=== PATIENT | female | born 1940 | race Caucasian/White ===

== ENCOUNTER 2018-08-14 11:48 | Emergency (ER) | payer MEDICARE, BC ==
[~2018-08-14] VITALS: Ht 165.1 cm; Wt 63.5 kg
[~2018-08-14 11:48] MED LIST: ESTR1PAT27; SIMV20TA2
--- NOTE | 2018-08-14 13:15 | NUR ---
1230: A/O x4, with c/o left leg pain 1310: Doppler left leg ordered, tech at bedside.
--- NOTE | 2018-08-14 13:15 | NUR ---
PT WALKED INTO EMERGENCY ROOM WITH C/C PERSISTENT LLE PAIN AND SWELLING SINCE THUSDAY CONCERN ABOUT DVT WAITNG MD EVALUATION PLACED IN HOSPITAL GOWN.
[2018-08-14 13:59] VITALS: BP 141/73
== END 2018-08-14 13:59 | disposition home or self-care (01) ==
LOC: ER 11:48
DX: R60.0 Localized edema (principal); Z98.890 Other specified postprocedural states; Z90.710 Acquired absence of both cervix and uterus
CPT/HCPCS: 93971-TC

== ENCOUNTER 2021-08-05 14:09 | Inpatient (IN) | payer MEDICARE, BC ==
[~2021-08-05] VITALS: Ht 165.1 cm; Wt 63.5 kg
[~2021-08-05 14:09] MED LIST changes: -SIMV20TA2; +SIMV20TA2 PO
--- NOTE | 2021-08-05 14:12 | NUR ---
MARILYN C/O VERTIGO SINCE YESTERDAY. CAME TO DR AGUIRRE AND WAS SENT HERE FOR A BRAIN SCAN. AWAITING MD KINGSTON.
--- NOTE | 2021-08-05 14:13 | NUR ---
sent by Dr. Dorado for w/u of severe vertigo
[2021-08-05] MEDS ORDERED: MECLIZINE HCL 25 MG TABLET ONE (14:57)
[2021-08-05] MEDS ORDERED: IV NS 0.9% 1,000 ML BAG IV ONE (15:00)
[2021-08-05] MEDS ORDERED: MECLIZINE HCL 12.5 MG TABLET PO ONE (15:00)
[2021-08-05 15:19] LABS: BASOPHILS % (AUTO) 0.3 % (0.0-2.0); EOSINOPHILS % (AUTO) 0.2 % (0.0-6.0); HEMATOCRIT 40 % (33-45); HEMOGLOBIN 13.8 g/dL (11.5-14.8); LYMPHOCYTES # (AUTO) 0.7 K/uL (0.8-4.8); MEAN CORPUSCULAR HGB CONC 34 g/dl (31.0-36.0); MEAN CORPUSCULAR VOLUME 90 fL (82-100); MONOCYTES # (AUTO) 0.8 K/uL (0.1-1.30); MONOCYTES % (AUTO) 9.6 % (2.0-12.0); NEUTROPHILS # (AUTO) 6.8 K/uL (1.8-8.9); NEUTROPHILS % (AUTO) 81.9 % (43.0-81.0); PLATELET COUNT (AUTO) 196 K/uL (150-450); RED BLOOD CELL COUNT(AUTO) 4.48 MIL/uL (4.0-5.2); WHITE BLOOD COUNT (AUTO) 8.3 K/uL (4.3-11.0)
--- NOTE | 2021-08-05 15:23 | NUR ---
PT TAKEN TO CT VIA [facility]
[2021-08-05] MEDS ORDERED: ESTR0.5T PO (15:29)
[2021-08-05] MEDS ORDERED: ESCI10TA PO (15:29)
[2021-08-05] MEDS ORDERED: ALPR0.255 PO (15:29)
--- NOTE | 2021-08-05 15:30 | NUR ---
PT [place]URN[place] [facility] [facility]
[2021-08-05 15:50] LABS: ALANINE AMINOTRANSFERASE 110 U/L (12-78); ALBUMIN 3.3 g/dL (3.4-5.0); ALKALINE PHOSPHATASE 98 U/L (46-116); ASPARTATE AMINOTRANSFERASE 85 U/L (15-37); BILIRUBIN,DIRECT 1.4 mg/dL (0.0-0.2); BILIRUBIN,TOTAL 4.2 mg/dL (0.2-1.0); CALCIUM, SERUM 9.1 mg/dL (8.5-10.1); CARBON DIOXIDE 30 mmol/L (21-32); CHLORIDE 103 mmol/L (98-107); CREATININE 0.7 mg/dL (0.6-1.3); GLUCOSE 111 mg/dL (74-106); POTASSIUM 3.7 mmol/L (3.5-5.1); SODIUM SERUM 141 mmol/L (136-145); TOTAL PROTEIN, SERUM 6.5 g/dL (6.4-8.2); UREA NITROGEN, BLOOD 15 mg/dL (7-18)
--- NOTE | 2021-08-05 16:37 | NUR ---
PAGED - JANIE - [employer] VIA EXCHANGE
[2021-08-05] MEDS ORDERED: ASPIRIN 81 MG TAB.CHEW PO ONE (17:30)
--- NOTE | 2021-08-05 17:51 | NUR ---
ROOM 106
[2021-08-05] MEDS ORDERED: ASPIRIN 81 MG TAB.CHEW ONE (17:54)
--- NOTE | 2021-08-05 18:31 | NUR ---
REPORT GIVEN TO SOON FOR TAYLOR
--- NOTE | 2021-08-05 19:29 | NUR ---
PT TRANSFERRED TO TELE FLOOR IN STABLE CONDITION WITH CLS PROTOCOLS IN PLACE
--- NOTE | 2021-08-05 19:30 | NUR ---
LUMBER HACKER NOTES: REPORT RECEIVED FROM CONRADO JOHNSTON. PT TRANSFERRED FROM ER VIA STRETCHER, PLACED IN ROOM 106 BED 1. PT AWAKE, ALERT/ORIENTED X3-4 AND VERBALLY RESPONSIVE. ON ROOM AIR, O2 95% AND PT TOLERATED WELL. ASSESSED THE WHOLE BODY. NOTED SKIN INTACT, NO OPEN SKIN OR SKIN DISCOLORATIONS NOTED. IV ACCESS ON RAC#20G INTACT AND PATENT. NO S/S OF INFILTRATIONS. PT REMAINED NPO AT THIS MOMENT PER DR. LIMA'S ORDER. APPLIED TELE MONITOR. CHANGED TO HOSPITAL GOWN. NO C/O PAIN OR DISCOMFORT. NO ACUTE DISTRESS. ASSISTED HER BATHROOM. NO C/O DIZZINESS AT THIS MOMENT. ALL SAFETY MEASURES IN PLACE. SIDE RAILS UPX2, BED IN LOWEST POSITION AND LOCKED. PLACE CALL LIGHT WITH IN REACH. WILL CONTINUE TO MONITOR
[2021-08-05 20:00] VITALS: BP 129/67
--- NOTE | 2021-08-05 23:35 | NUR ---
RN NOTES: PT CONSTANTLY ASKING FOR SOMETHING TO EAT? MENTIONED SHE HADN'T EAT ANYTHING SINCE LAST THURSDAY. TRIED TO EXPLAINED TO HER SHE IS NPO BUT DIDN'T WANT TO LISTEN. NOTIFIED DR. HILARIO, PT IS AMBULATORY, ABLE TO MAKE HER NEEDS. ORDER TO DO BED SIDE SWALLOW EVAL AND IF PASSES THEN MAKE AN ORDER FOR CARDIAC DIET. NOTED AND CARRIED OUT.
--- NOTE | 2021-08-05 23:45 | NUR ---
RN NOTES: GAVE PT FEW SPOONS OF WATER AND WAS ABLE TO SWALLOW WITHOUT ANY DIFFICULTIES. NO EPISODE OF ANY COUGHING NOTED. CARDIAC DIET ORDER MADE. WILL CONTINUE TO MONITOR
[2021-08-06] VITALS: BP 118/42
[2021-08-06 04:00] VITALS: BP 114/57
[2021-08-06 06:30] LABS: BASOPHILS % (AUTO) 0.2 % (0.0-2.0); EOSINOPHILS % (AUTO) 3.5 % (0.0-6.0); HEMATOCRIT 38 % (33-45); HEMOGLOBIN 12.8 g/dL (11.5-14.8); LYMPHOCYTES # (AUTO) 0.9 K/uL (0.8-4.8); LYMPHOCYTES % (AUTO) 16.4 % (20.0-44.0); MEAN CORPUSCULAR HGB CONC 34 g/dl (31.0-36.0); MEAN CORPUSCULAR VOLUME 90 fL (82-100); MONOCYTES # (AUTO) 0.7 K/uL (0.1-1.30); MONOCYTES % (AUTO) 11.9 % (2.0-12.0); NEUTROPHILS # (AUTO) 3.9 K/uL (1.8-8.9); PLATELET COUNT (AUTO) 173 K/uL (150-450); RED BLOOD CELL COUNT(AUTO) 4.18 MIL/uL (4.0-5.2); WHITE BLOOD COUNT (AUTO) 5.8 K/uL (4.3-11.0)
--- NOTE | 2021-08-06 06:39 | NUR ---
RN CLOSING NOTES: PT ASLEEP IN BED BUT EASILY AROUSABLE, AWAKE, ALERT/ORIENTED X3-4 AND VERBALLY RESPONSIVE. ON ROOM AIR, O2 97% AND PT TOLERATED WELL. IV ACCESS ON RAC#20G INTACT AND PATENT. NO S/S OF INFILTRATIONS. NO C/O PAIN OR DISCOMFORT. NO ACUTE DISTRESS. COOPERATIVE WITH CARE. ALL SAFETY MEASURES IN PLACE. SIDE RAILS UPX2, BED IN LOWEST POSITION AND LOCKED. PLACE CALL LIGHT WITH IN REACH. WILL ENDORSE TO MORNING SHIFT NURSE.
--- NOTE | 2021-08-06 06:49 | NUR ---
TEXT DR. UP FOR MRI APPROVAL.
[2021-08-06 06:57] LABS: BILIRUBIN,DIRECT 1.5 mg/dL (0.0-0.2); BILIRUBIN,TOTAL 4.3 mg/dL (0.2-1.0); CREATININE 0.6 mg/dL (0.6-1.3); POTASSIUM 3.6 mmol/L (3.5-5.1); TOTAL PROTEIN, SERUM 6.1 g/dL (6.4-8.2)
[2021-08-06 07:12] LABS: THYROID STIMULATING HORMONE 1.778 uIU/mL (0.358-3.74)
--- NOTE | 2021-08-06 07:30 | NUR ---
BEAD STRINGER AM NOTES PT IN BED, AO X 3-4 , ON RA O2 SAT 100%. DENIES SOB, RESPIRATION UNLABORED, SB HR 57. DENIES CHEST PAIN/ DISCOMFORT AT THIS TIME. IV ACCESS ON RAC#20G FLUSHES WELL, SITE CLEAR. COULD AMBULATE TO BATHROOM WITH ASSIST. ON CARDIAC DIET. NO C/O DIZZINESS AT THIS MOMENT. NIHSS SCALE DONE. SCORE 0. POC DISCUSSED, VERBALIZED UNDERSTANDING. ALL SAFETY MEASURES IN PLACE. SIDE RAILS UPX2, BED IN LOWEST POSITION AND LOCKED. CALL LIGHT WITH IN REACH. WILL CONTINUE TO MONITOR
[2021-08-06 08:00] VITALS: BP 117/65
--- NOTE | 2021-08-06 08:01 | NUR ---
MRI NOT APPROVED BY DR. UP.
[2021-08-06] MEDS: ESCITALOPRAM OXALATE (10 MG) 10 MG TABLET PO SCH (08:42)
--- NOTE | 2021-08-06 09:30 | NUR ---
RN NOTES DUE MEDS GIVEN PATIENT SEEN BY DR. CASTAÑEDA EARLIER AND AGREED TO WAIT FOR MRI OF BRAIN TO BE DONE.
--- NOTE | 2021-08-06 10:30 | NUR ---
RN NOTES DR. LUDWIG AT BEDSIDE. ORDERED HIDA SCAN
[2021-08-06 12:00] VITALS: BP 117/61
[2021-08-06] MEDS: ONDANSETRON HCL/PF 4 MG/2 ML VIAL IV PRN (12:38)
[2021-08-06] MEDS ORDERED: KETOROLAC TROMETHAMINE INJ 30 MG/ML VIAL IM ONE (14:00)
[2021-08-06 16:00] VITALS: BP 152/52
[2021-08-06] MEDS: SIMVASTATIN 20 MG TABLET PO SCH (17:41)
--- NOTE | 2021-08-06 18:04 | NUR ---
RN NOTES DR CASTAÑEDA AND DR. SCANLON NOTIFIED THAT MRI OF THE BRAIN WWO CONTRAST. PER DESI VU. DR. SCANLON WILL TALK TO THE PATIENT TOMORROW..
[2021-08-06] MEDS ORDERED: LORAZEPAM INJ 2 MG/ML VIAL IV ONE ×2 (18:30→21:00)
--- NOTE | 2021-08-06 18:37 | NUR ---
RN NOTES PATIENT BACK FROM HIDA SCAN. PER ILDA MUHAMMAD, HE WILL COME BACK TO CLIENT MANAGER LARGE LAW PATIENT AT 1930. KEEP PATIENT NPO, MAY HAVE SIPS OF WATER AND ICE CHIPS NO MORPHINE SULFATE.
--- NOTE | 2021-08-06 19:07 | NUR ---
RN NOTES ALL NEEDS MET AT THIS TIME. STABLE. NOT IN ANY DISTRESS. DR. SCANLON TO TALK TO PATIENT TOMORROW. WILL ENDORSE TO NEXT SHIFT FOR TAYLOR. Addendum: 08/06/21 at 1918 by EDGARDO SHERWOOD RN ADDENDUM MAY GIVE ATIVAN AND MORPHINE SULFATE AFTER HIDA SCAN.
--- NOTE | 2021-08-06 19:39 | NUR ---
RN NOTE PT WENT TO RADIOLOGY FOR HIDA SCAN.
[2021-08-06 20:20] VITALS: BP 148/89
--- NOTE | 2021-08-06 20:20 | NUR ---
RN NOTE PT CAME BACK FROM RADIOLOGY. ALERT AND ORIENTED. DENIES ANY SOB, ON ROOM AIR SATING 99%. DENIES ANY DIZZINESS. COMPLAINED OF PAIN ON RIGHT ABDOMEN WHICH PT STATED IMPROVED FROM EARLIER. ON TELE MONITORING, SR HR 66. WILL CONTINUE TO MONITOR.
--- NOTE | 2021-08-06 20:25 | NUR ---
NM:JAREDA SCAN WAS COMPLETED:TECH:RB
--- NOTE | 2021-08-06 21:21 | NUR ---
RN NOTE SEEN PT CRYING, REMEMBERING , REQUESTED FOR MED TO RELAX, PT WITH DUE LORAZEPAM IV. IV LINE ON RAC LEAKING, INSERTED 22G RFA FLUSHES WELL. GIVEN LORAZEPAM ORDERED. WILL CONTINUE TO MONITOR
[2021-08-07] VITALS: BP 127/48
--- NOTE | 2021-08-07 00:15 | NUR ---
rn note pt sleeping, arouses easily. denies any pain. will continue to monitor.
[2021-08-07 04:00] VITALS: BP 114/51
[2021-08-07 06:27] LABS: BASOPHILS % (AUTO) 0.1 % (0.0-2.0); EOSINOPHILS % (AUTO) 1.6 % (0.0-6.0); HEMATOCRIT 38 % (33-45); HEMOGLOBIN 12.7 g/dL (11.5-14.8); LYMPHOCYTES # (AUTO) 0.7 K/uL (0.8-4.8); LYMPHOCYTES % (AUTO) 8.4 % (20.0-44.0); MEAN CORPUSCULAR HGB CONC 34 g/dl (31.0-36.0); MEAN CORPUSCULAR VOLUME 90 fL (82-100); MONOCYTES # (AUTO) 1.2 K/uL (0.1-1.30); MONOCYTES % (AUTO) 13.5 % (2.0-12.0); NEUTROPHILS # (AUTO) 6.7 K/uL (1.8-8.9); NEUTROPHILS % (AUTO) 76.4 % (43.0-81.0); PLATELET COUNT (AUTO) 188 K/uL (150-450); RED BLOOD CELL COUNT(AUTO) 4.16 MIL/uL (4.0-5.2); WHITE BLOOD COUNT (AUTO) 8.8 K/uL (4.3-11.0)
--- NOTE | 2021-08-07 07:03 | NUR ---
RN NOTE PT SLEPT WELL ALL NIGHT. NOT IN ANY DISTRESS. TOLERATES ROOM AIR. PT DENIES ANY PAIN. SR ON TELE MONITOR. WILL ENDORSE TO NEXT SHIFT NURSE FOR TAYLOR.
[2021-08-07 07:07] LABS: ALBUMIN 2.8 g/dL (3.4-5.0); BILIRUBIN,DIRECT 3.3 mg/dL (0.0-0.2); BILIRUBIN,TOTAL 6.1 mg/dL (0.2-1.0); CREATININE 0.7 mg/dL (0.6-1.3); POTASSIUM 3.5 mmol/L (3.5-5.1)
--- NOTE | 2021-08-07 07:20 | NUR ---
RN OPENING NOTES RECEIVED PATIENT RESTING IN BED, EASILY AROUSED. NO SIGNS OF ACUTE DISTRESS NOTED. STABLE ON ROOM AIR, NO SOB NOTED, BREATHING EVEN AND UNLABORED. NOTED WITH IV ACCESS ON RIGHT FOREARM #22G, INTACT AND PATENT. NO C/O PAIN AT THIS TIME BUT STILL C/O DIZZINESS. REMAINS ON TELE MONITOR. SAFETY MEASURE IN PLACE, BED IN LOWEST AND LOCKED POSITION, SIDE RAILS UP X2, CALL LIGHT PLACED WITHIN EASY REACH. WILL CONTINUE TO MONITOR PATIENT.
[2021-08-07 08:00] VITALS: BP 129/70
[2021-08-07] MEDS: ESCITALOPRAM OXALATE (10 MG) 10 MG TABLET PO SCH (08:21)
--- NOTE | 2021-08-07 09:50 | NUR ---
RN NOTES PATIENT PICKED-UP FOR MRI OF BRAIN, IN STABLE CONDITION.
--- NOTE | 2021-08-07 10:40 | NUR ---
RN NOTES BACK FROM MRI.
--- NOTE | 2021-08-07 11:58 | NUR ---
SS Note: SS received consult for dizziness. Pt. Is an 81-year-old White female who demonstrates adequate insight to the reason for hospitalization. Per pt., she presents to the hospital for vertigo. Pt. was oriented x4, alert, and cooperative. During interview, pt. was capable of following directions and appeared groomed. Pt.s speech was at a normal rate and pt.s mood was elevated. Pt. reported no hx of mental health, substance abuse, suicidal ideation, or homicidal ideation. Pt. denies auditory hallucinations, visual hallucinations, paranoia, or delusions. SW explored pt.s living situation. Per pt., she now lives [id number] [address]]. Pt.s 3 months ago, and she has been going through a hard time, SW provided pt. with emotional support. Pt. reports having adequate support from her family. Her son has been checking on her two dogs at home. Pt.s son and daughter visit her once a week. Pt. stated that she was not able to eat for couple of days because she was not feeling well. Per EMR, pt. PCP was concern about vertigo symptoms. Plan: SW provided available resources and pt. accepted. Pt. expressed that she wants to return home once discharged [id number] [place] [address] Pt. stated that she feels safe going home and has family support. Resources Provided: ABUSE PREVENTION: ELDER ABUSE HOTLINE (13/10) ADULT PROTECTIVE SERVICES HOTLINE LONG-TERM CARE [facility] Region AREA ON AGING (HOTLINE) ADULT DAY HEALTH CARE CARE CENTERS: Private pay or Medi-chanelle funded adult day care [place] Adult Day Health Care [facility] , [facility] , [facility] Adult Care Center , [facility] Adult Day Health Care , [facility] Adult Day Health Care , [facility] Adult Daycare Center , [place] ONE Generation Center , [facility] Adult Center , [place] ALZHEIMERS DISEASE/DEMENTIA: Alzheimers Association Helpline [facility] Chapter www.alz.org/[facility] Department of Aging www.lacity.org Family Caregiver [place] www.caregiver.org [place] Caregiver Resources Center/Family Support www.[facility].org CANCER RESOURCES: [place] Cancer Society www.cancer.org Cancer Support Community www.CancerSupportVvsb.org: CancerCare www.cancercare.org [facility] Cancer Support [place] www.[facility].org [facility] HEALTH ASSOCIATIONS: AARP www.aarp.org ALS Association (ask for Tracy) www.als.org [place] Diabetes Association www.diabetes.org [place] Heart Association www.heart.org C[place] Lung Association www.lungusa.org Cymro Parkinson Disease Association www.apdaparkinson.org Cymro [place] , www.redcross.org Arthritis Foundation www.arthritis.org Crohns & Colitis Foundation of [place] www.ccfa.org/chapters/dominik National Multiple Sclerosis Society www.nationalmssociety.org Myasthenia Gravis Foundation www.myasthenia-ca.org National Stroke Association www.stroke.org CONSERVATORSHIP & GUARDIANSHIP: AARP Michelle Rinaldi Legal Services Center for Health Care Rights Eld[place]are Information and Referral Supervisor Fabrication And Assembly Foundation [facility]: [facility] Bar Referral Service [facility] Legal Services Office of the Public Guardian [place] EYESIGHT DISORDER RESOURCES: [place] Macular Degeneration Foundation [facility] www.[facility].org GRIEF AND BEREAVEMENT RESOURCES: The Gathering Place , [facility] [employer] Connection , [facility] Bereavement Center , [place] HEARING DISORDER RESOURCES: [place] Telephone Access Program Deaf and Disabled Telecommunications Program www.ddtp.[facility].ca.gov HearRx Hearing Centers ([place]) Better Hearing Systems , [place] GLAD ([facility] Agency on Deafness) V/ TTY; Redrying Machine Operator , [facility] -low income hearing aid assistance www.[facility] systemfoundation.org [place] Hearing Care , [place] HELP AT HOME CAREGIVER SUPPORT: In Home Support Services (Must have Medi-Chanelle to be eligible) *Ask for a list of agencies that provide services to assist with care in the home. Local Senior Centers also have listings of care providers. HOME SAFETY MODIFICATIONS AND EQUIPMENT: Senior centers have additional referrals. [place] Housing and Community Investment Dept. Handyworker Program (low income) or Visit http://hcidla.[facility].org/dia-snygqo-lb for more information National Seating and Mobility and/or ; Forever Active www.foreveractivemed.[place] Stay Home Safe www.Stayhomesafe.Begun LIFE ALERT RESPONSE SYSTEM: Hyper9 Lifeline Services 129-281-1667 www. Cie Games Life Alert 485-296-0146 www.Pixlee.[place]egun Life Station 173-458-1831 www.Kamegoation.Begun Safe Return 788-432-2385 www.alz.or/safereturn Cell Phones for Seniors www.KickAss Candy MEALS AND FOOD PROGRAMS: [place] Meals on Wheels [phone] [place] Meals on Wheels [phone] [place] [facility] [phone] [place] to the Homebound [phone] [place] to the Homebound [phone] [facility] to the Homebound [phone] [facility] to the Homebound [phone] [facility] Kevin Hernandez [phone] [facility] [phone] ONE Generation [phone] [facility] [phone] [facility] [phone] Meals on Wheels [phone] For all ages: $6.85/ meal w side. Delivered M-F from 10 am-1pm. Application and payment is done over the phone. Frozen meals available for weekends. Emergency Food Coalition [phone] [phone] [facility] Halal Butcher [phone] [facility] [phone] [facility]- Brown bag lunches [phone] [facility] [phone] MEAL/GROCERY DELIVERY PROGRAMS: [facility] Gourmet Meals [phone]- [facility] [phone]- [facility] Magic Kitchen [phone] Moms Meals [phone] (ask García for Discount Select grocery stores may provide delivery. MEDICAL INSURANCE SUPPORT SERVICES: Center for Health Care Rights [phone] Health Insurance Counseling/Advocacy Programs (HICAP)-Must have Medicare. Offers counseling for Medi-Chanelle eligibility [phone] Department of Public Halal Butcher [phone] www.[place] human resource ssd.ca.gov Medicare [phone] www.socialsecurity.org Social Security [phone] SENIOR ACTIVITY PROGRAMS: *Contact a local senior center, adult school, recreation facility or community [facility] for education, fitness, recreation, and social programs. Aquatic Therapy and Adapted Exercise programs through [facility] [phone] [facility] [phone] www.[facility]/encore U- Senior Friends [phone] [place] Senior Programs [phone] www.oasisnet.org Suddenly 65 www.Between Digital.Begun SENIOR CENTERS: [facility] [phone] [facility] [place] [phone] [facility] [phone] [facility] [phone] [facility] [phone] [facility] [phone] [facility] [phone] [facility] [phone] One Generation, [facility] [phone] [facility] [phone] [facility] Care [facility] [phone] [facility] [phone] [facility] [phone] TRANSPORTATION: Local [facility] Centers may have applications for transportation programs and additional resources. ACCESS Services [phone] Transportation for seniors and disabled persons 7 days a week requiring 254 hr. advance reservation. Must apply and register for program shelli eligible. CITY RIDE 832-532-6793 or [phone] Transportation for seniors and persons with ADA card/metro disabled card in the [facility]. M-F only. Must register for services. ONE GENERATION [phone] Serves 65 years + in conjunction with PurePredictive ride program. Must be registered with both programs. A to B Transport [phone] Provides wheelchair/gurney van service. Adult Medical Transport [phone] Accepts [facility] with prior authorization. Care Van [phone] Provides wheelchair Transport. [facility] Wide Transportation [phone] Provides gurney service Gentle Care [phone] Gurney Transport. All Town Transportation [phone] wheelchair & gurney transport GMD Transportation [phone] wheelchair & gurney transport [place] Non-Emergency Transport [phone] wheelchair & gurney transport [facility] Living [place] [phone] Short Term Transportation primarily for adults with disabilities on social security income. Nominal fee may apply and a reservation is required. [facility] Cab [phone] or [phone] GigsJam [facility] [phone] [place] [address] Referral Services -[phone] For additional programs & services VETERANS RESOURCES: Submissions for Aid and Attendance should be done directly to Federal VA office locatd at : [address] [address] X110 National Caregiver Support Line [phone] Chanelle Kumar Veterans Services Field Office [phone] [place] Department of [place] Affairs [phone] Pension Information [phone]
[2021-08-07 12:00] VITALS: BP 116/51
[2021-08-07 16:00] VITALS: BP 118/49
[2021-08-07] MEDS: MORPHINE SULFATE INJ 2 MG/ML DISP.SYRIN IV PRN ×2 (16:37→22:43)
[2021-08-07] MEDS: SIMVASTATIN 20 MG TABLET PO SCH (17:13)
--- NOTE | 2021-08-07 18:37 | NUR ---
RN CLOSING NOTES PATIENT IN BED, AWAKE. NO SIGNS OF ACUTE DISTRESS NOTED. REMAINS STABLE ON ROOM AIR, NO SOB NOTED, BREATHING EVEN AND UNLABORED. IV ACCESS ON RIGHT FOREARM #22G, INTACT AND PATENT, SALINE LOCKED. MEDICATED FOR PAIN NEEDED. DUE MEDS GIVEN, TOLERATED WELL. SAFETY MEASURE MAINTAINED, BED IN LOWEST AND LOCKED POSITION, SIDE RAILS UP X2, CALL LIGHT PLACED WITHIN EASY REACH. WILL ENDORSE TO NEXT SHIFT FOR CONTINUITY OF CARE.
--- NOTE | 2021-08-07 19:30 | NUR ---
RN OPENING NOTE RECEIVED PATIENT RESTING IN BED, A/O X 3. NO SIGNS OF ACUTE DISTRESS NOTED AT THIS TIME. STABLE ON ROOM AIR, NO SOB NOTED, BREATHING EVEN AND UNLABORED. NOTED WITH IV ACCESS ON RIGHT FOREARM #22G, INTACT AND PATENT. NO C/O PAIN AT THIS TIME. ALL SAFETY MEASURES IN PLACE, BED IN LOWEST AND LOCKED POSITION, SIDE RAILS UP X2, CALL LIGHT WITHIN EASY REACH. WILL CONTINUE TO MONITOR PATIENT.
[2021-08-07 20:00] VITALS: BP 122/56
[2021-08-07] MEDS ORDERED: ALPRAZOLAM 0.25 MG TABLET PO PRN ×2 (22:30)
[2021-08-08 04:00] VITALS: BP 106/44
[2021-08-08 06:30] LABS: ALANINE AMINOTRANSFERASE 134 U/L (12-78); ALBUMIN 2.6 g/dL (3.4-5.0); ALKALINE PHOSPHATASE 264 U/L (46-116); ASPARTATE AMINOTRANSFERASE 100 U/L (15-37); BILIRUBIN,TOTAL 6.5 mg/dL (0.2-1.0); CARBON DIOXIDE 31 mmol/L (21-32); CHLORIDE 101 mmol/L (98-107); CREATININE 0.6 mg/dL (0.6-1.3); GLUCOSE 130 mg/dL (74-106); PHOSPHORUS 2.7 mg/dL (2.5-4.9); POTASSIUM 3.6 mmol/L (3.5-5.1); SODIUM SERUM 138 mmol/L (136-145); TOTAL PROTEIN, SERUM 5.9 g/dL (6.4-8.2); UREA NITROGEN, BLOOD 17 mg/dL (7-18)
[2021-08-08 06:49] LABS: BASOPHILS % (AUTO) 0.1 % (0.0-2.0); EOSINOPHILS % (AUTO) 1.7 % (0.0-6.0); HEMATOCRIT 36 % (33-45); HEMOGLOBIN 12.5 g/dL (11.5-14.8); LYMPHOCYTES % (AUTO) 12.9 % (20.0-44.0); MEAN CORPUSCULAR HGB CONC 35 g/dl (31.0-36.0); MEAN CORPUSCULAR VOLUME 90 fL (82-100); MONOCYTES # (AUTO) 1.3 K/uL (0.1-1.30); MONOCYTES % (AUTO) 16.8 % (2.0-12.0); NEUTROPHILS # (AUTO) 5.5 K/uL (1.8-8.9); NEUTROPHILS % (AUTO) 68.5 % (43.0-81.0); PLATELET COUNT (AUTO) 201 K/uL (150-450); RED BLOOD CELL COUNT(AUTO) 4.02 MIL/uL (4.0-5.2)
--- NOTE | 2021-08-08 07:37 | NUR ---
RN CLOSING NOTE PATIENT RESTING IN BED, A/O X 3. NO SIGNS OF ACUTE DISTRESS NOTED AT THIS TIME. STABLE ON ROOM AIR, SATING AT 96%. PT COMPLAINED OF PAIN ON HER STOMACH AREA. GAVE HER XANAX FOR ANTI- ANXIETY AND MORPHINE IVP FOR SEVERE PAIN. NOTED WITH IV ACCESS ON RIGHT FOREARM #22G, INTACT AND PATENT. ALL NEEDS ATTENDED TO. ALL SAFETY MEASURES IMPLEMENTED. BED IN LOWEST AND LOCKED POSITION, SIDE RAILS UP X2, CALL LIGHT WITHIN EASY REACH. WILL ENDORSE TO AM SHIFT NURSE FOR TAYLOR.
--- NOTE | 2021-08-08 08:00 | NUR ---
SR. DIRECTOR PRODUCT MANAGEMENT NOTE DR CASTAÑEDA AT BEDSIDE NOTIFIED THAT PATIENT FEELS PAIN AND FEELS ANXIOUS ORDERED MORPHINE 4 MG IVP AND START ON CLEAR LIQUID DIET , AND START ON IVF ,ORDERED ATIVAN PRN AND PSYCH EVAL FOR ANXIET
--- NOTE | 2021-08-08 08:03 | NUR ---
MS RN NOTE PATENT AWAKE SITTING AT EDGE OF BED CRYING , C\O ABDOMINAL PAIN. ALERT ORIENTEDX3, RT FA HL INTACT AND IN PLACE , NO SOB NOTED AT THIS TIME ,ON RA ,ALL NEEDS ATTENDED, CALL LIGHT WITHIN REACH, WILL CONT TO MONITOR AND EVALUATE FOR PAIN, BED IN LOWEST AND LOCKED POSITION,
[2021-08-08] MEDS ORDERED: MORPHINE SULFATE INJ 2 MG/ML DISP.SYRIN IV PRN (09:00)
[2021-08-08] MEDS: IV NS 0.9% 1,000 ML IV SCH (10:16)
[2021-08-08] MEDS: ESCITALOPRAM OXALATE (10 MG) 10 MG TABLET PO SCH (10:29)
--- NOTE | 2021-08-08 10:30 | NUR ---
MS RN NOTE SPOKE WITH DR LUDWIG SURGEON NOTIFIED HIDDA SCAN AND MRI ABDOMEN RESULT ,STATED THAT WILL CALL TO DR CASTAÑEDA
--- NOTE | 2021-08-08 11:30 | NUR ---
MS RN NOTE RESTING COMFORTABLY IN BED AFTER MORPHINE 4 MG IV ADMINISTERED
[2021-08-08 11:58] VITALS: BP 134/75
[2021-08-08 12:02] VITALS: BP 134/75
--- NOTE | 2021-08-08 15:07 | NUR ---
MS RN NOTE: MID LINE INSERTED IN LEFT UPPER ARM ORDERED BY PICC LINE NURSE
[2021-08-08] MEDS: SIMVASTATIN 20 MG TABLET PO SCH (17:25)
--- NOTE | 2021-08-08 18:21 | NUR ---
COOLER WORKER NOTE SPOKE WITH DR BONNER ABOUT GI CONSULT STATED THAT NOT COMING TODAY BUT GET CONSENT FOR ERC,P WILL BE DONE ON THURSDAY WILL KEEP NPO THURSDAY AFTER Addendum: 08/08/21 at 1854 by NATALY GALO RN ALL NEEDS ATTENDEE WITH IVF ORDERED, FAMILY AT BEDSIDE
--- NOTE | 2021-08-08 19:30 | NUR ---
RN OPENING NOTE RECEIVED PATIENT RESTING IN BED, A/O X 3. FAMILY MEMBER ON BEDSIDE. NO SIGNS OF ACUTE DISTRESS NOTED AT THIS TIME. STABLE ON ROOM AIR, NO SOB NOTED, BREATHING EVEN AND UNLABORED. NOTED WITH IV ACCESS ON JOSE MIDLINE RUNNING NS @ 75 CC/HR AND LEFT HAND, #24G, BOTH INTACT AND PATENT. NO C/O PAIN AT THIS TIME. ALL SAFETY MEASURES IN PLACE, BED IN LOWEST AND LOCKED POSITION, SIDE RAILS UP X2, CALL LIGHT WITHIN EASY REACH. WILL CONTINUE TO MONITOR PATIENT.
[2021-08-08 20:00] VITALS: BP 123/57
[2021-08-08] MEDS: LORAZEPAM 0.5 MG TABLET PO PRN (22:39)
[2021-08-09] MEDS: IV NS 0.9% 1,000 ML IV SCH ×2 (01:12→12:53)
[2021-08-09 04:00] VITALS: BP 105/58
[2021-08-09 06:43] LABS: BASOPHILS % (AUTO) 0.3 % (0.0-2.0); EOSINOPHILS % (AUTO) 3.3 % (0.0-6.0); HEMATOCRIT 34 % (33-45); HEMOGLOBIN 11.5 g/dL (11.5-14.8); LYMPHOCYTES # (AUTO) 1.1 K/uL (0.8-4.8); LYMPHOCYTES % (AUTO) 22.6 % (20.0-44.0); MEAN CORPUSCULAR HGB CONC 33 g/dl (31.0-36.0); MEAN CORPUSCULAR VOLUME 91 fL (82-100); MONOCYTES # (AUTO) 0.8 K/uL (0.1-1.30); MONOCYTES % (AUTO) 15.6 % (2.0-12.0); NEUTROPHILS # (AUTO) 2.8 K/uL (1.8-8.9); NEUTROPHILS % (AUTO) 58.2 % (43.0-81.0); PLATELET COUNT (AUTO) 192 K/uL (150-450); RED BLOOD CELL COUNT(AUTO) 3.79 MIL/uL (4.0-5.2); WHITE BLOOD COUNT (AUTO) 4.9 K/uL (4.3-11.0)
[2021-08-09 07:12] LABS: ALANINE AMINOTRANSFERASE 208 U/L (12-78); ALBUMIN 2.3 g/dL (3.4-5.0); ALKALINE PHOSPHATASE 432 U/L (46-116); ASPARTATE AMINOTRANSFERASE 146 U/L (15-37); BILIRUBIN,DIRECT 2.8 mg/dL (0.0-0.2); BILIRUBIN,TOTAL 4.8 mg/dL (0.2-1.0); CALCIUM, SERUM 8.7 mg/dL (8.5-10.1); CARBON DIOXIDE 33 mmol/L (21-32); CHLORIDE 105 mmol/L (98-107); CREATININE 0.7 mg/dL (0.6-1.3); GLUCOSE 104 mg/dL (74-106); MAGNESIUM 1.9 mg/dL (1.8-2.4); PHOSPHORUS 2.7 mg/dL (2.5-4.9); POTASSIUM 3.8 mmol/L (3.5-5.1); SODIUM SERUM 141 mmol/L (136-145); TOTAL PROTEIN, SERUM 5.5 g/dL (6.4-8.2); UREA NITROGEN, BLOOD 10 mg/dL (7-18)
--- NOTE | 2021-08-09 07:32 | NUR ---
RN OPENING NOTES: RECEIVED PATENT IN BED ASLEEP, . ALERT ORIENTEDX3, RT FA HL INTACT AND IN PLACE , NO SOB NOTED AT THIS TIME ,ON RA, CALL LIGHT WITHIN REACH, BED IN LOWEST AND LOCKED POSITION, WILL MONITOR THE PATIENT
--- NOTE | 2021-08-09 07:35 | NUR ---
RN CLOSING NOTE PATIENT REMAINED STABLE THROUGHOUT THE SHIFT.ON RA TOLERATING WELL. NO ACUTE DISTRESS NOTED. IV ACCESS NOTED ON JOSE MIDLINE RUNNING NS @ 75 CC/HR AND LEFT HAND, #24G, BOTH INTACT AND PATENT. VS WNL. ALL SAFETY MEASURES IMPLEMENTED. BED IN LOWEST AND LOCKED POSITION, SIDE RAILS UP X2, CALL LIGHT WITHIN EASY REACH. WILL ENDORSE TO AM SHIFT FOR TAYLOR.
[2021-08-09 08:00] VITALS: BP 123/55
[2021-08-09] MEDS: ESCITALOPRAM OXALATE (10 MG) 10 MG TABLET PO SCH (08:47)
--- NOTE | 2021-08-09 08:50 | NUR ---
RN NOTES: PT IN BED TOOK HER AM MEDS, ASKED WHY SHE DID NOT EAT BREAKFAST SAID IT IS OK I WILL EAT IT LATER I PREFER TO SLEEP NOW
[2021-08-09 16:00] VITALS: BP 135/75
[2021-08-09] MEDS: SIMVASTATIN 20 MG TABLET PO SCH (17:13)
--- NOTE | 2021-08-09 19:28 | NUR ---
RN closing notes: PATIENT RESTING IN BED, A/O X 3. NO SIGNS OF ACUTE DISTRESS NOTED AT THIS TIME. STABLE ON ROOM AIR, SATING AT 96%. . NOTED WITH IV ACCESS ON RIGHT FOREARM #22G, INTACT AND PATENT. ALL NEEDS ATTENDED TO. ALL SAFETY MEASURES IMPLEMENTED. BED IN LOWEST AND LOCKED POSITION, SIDE RAILS UP X2, CALL LIGHT WITHIN EASY REACH. WILL ENDORSE TO oncoming SHIFT NURSE
--- NOTE | 2021-08-09 19:30 | NUR ---
RN OPENING NOTE RECEIVED PATIENT IN BED, A/O X 4. STABLE ON ROOM AIR. NO SIGNS OF ACUTE DISTRESS NOTED AT THIS TIME. NO SOB NOTED, BREATHING EVEN AND UNLABORED. NOTED WITH IV ACCESS ON JOSE MIDLINE RUNNING NS @ 75 CC/HR AND LEFT HAND, #24G, BOTH INTACT AND PATENT. NO C/O PAIN AT THIS TIME. ALL SAFETY MEASURES IN PLACE, BED IN LOWEST AND LOCKED POSITION, SIDE RAILS UP X2, CALL LIGHT WITHIN EASY REACH. WILL CONTINUE TO MONITOR PATIENT.
[2021-08-09] MEDS: LORAZEPAM 0.5 MG TABLET PO PRN (21:39)
[2021-08-10] MEDS: IV NS 0.9% 1,000 ML IV SCH ×2 (02:20→14:56)
[2021-08-10 04:00] VITALS: BP 137/65
[2021-08-10 06:30] LABS: BASOPHILS % (AUTO) 0.4 % (0.0-2.0); EOSINOPHILS % (AUTO) 3.3 % (0.0-6.0); HEMATOCRIT 35 % (33-45); HEMOGLOBIN 11.6 g/dL (11.5-14.8); LYMPHOCYTES # (AUTO) 1.6 K/uL (0.8-4.8); LYMPHOCYTES % (AUTO) 24.4 % (20.0-44.0); MEAN CORPUSCULAR HGB CONC 33 g/dl (31.0-36.0); MEAN CORPUSCULAR VOLUME 90 fL (82-100); NEUTROPHILS # (AUTO) 3.7 K/uL (1.8-8.9); NEUTROPHILS % (AUTO) 55.9 % (43.0-81.0); PLATELET COUNT (AUTO) 238 K/uL (150-450); RED BLOOD CELL COUNT(AUTO) 3.89 MIL/uL (4.0-5.2); WHITE BLOOD COUNT (AUTO) 6.6 K/uL (4.3-11.0)
[2021-08-10 06:57] LABS: ALBUMIN 2.3 g/dL (3.4-5.0); BILIRUBIN,TOTAL 3.9 mg/dL (0.2-1.0); CALCIUM, SERUM 8.9 mg/dL (8.5-10.1); CREATININE 0.7 mg/dL (0.6-1.3); MAGNESIUM 1.9 mg/dL (1.8-2.4); PHOSPHORUS 2.3 mg/dL (2.5-4.9); POTASSIUM 3.6 mmol/L (3.5-5.1); TOTAL PROTEIN, SERUM 5.5 g/dL (6.4-8.2)
--- NOTE | 2021-08-10 07:02 | NUR ---
RN CLOSING NOTE NO SIGNIFICANT CHANGE THROUGHOUT THE SHIFT. STABLE ON ROOM AIR. NO S/SX OF ACUTE DISTRESS. NO SOB. PT IS A/O X 4. NOTED WITH IV ACCESS ON JOSE MIDLINE RUNNING NS @ 75 CC/HR AND LEFT HAND, #24G, BOTH INTACT AND PATENT. NO C/O PAIN. ALL NEEDS ATTENDED TO. ALL SAFETY MEASURES IMPLEMENTED: BED IN LOWEST AND LOCKED POSITION, SIDE RAILS UP X2, CALL LIGHT WITHIN EASY REACH. WILL ENDORSE TO AM SHIFT NURSE FOR TAYLOR.
[2021-08-10] MEDS ORDERED: SUCCINYLCHOLINE CHLORIDE 20 MG/ML VIAL ONE (07:24)
[2021-08-10] MEDS ORDERED: FAMOTIDINE/PF INJ 20 MG/2 ML VIAL IV ONE (07:24)
--- NOTE | 2021-08-10 07:36 | NUR ---
RN OPENING NOTE PATIENT IS IN BED ASLEEP, BUT EASILY ROUSABLE. ORIENTED X 4. ON NPO SINCE MIDNIGHT FOR TODAY'S ECRP PROCEDURE. WITH LEFT UPPER ARM MIDLINE INFUSING WITH NS @ 75 CC/HR. WITH LEFT HAND SALINE LOCK INTACT AND PATENT. BED IS LOCKED IN THE LOWEST POSITION, 3 GUARD RAILS RAISED, CALL GRACIA WITHIN REACH, AND ALL HOSPITAL SAFETY PRECAUTIONS ARE IN PLACE. WILL CONTINUE TO MONITOR THROUGHOUT SHIFT.
--- NOTE | 2021-08-10 08:00 | NUR ---
RN NOTE PATIENT TO SURGERY FOR ERCP. PATIENT WAS PICKED UP BY 3 OR STAFF AND LEFT THE UNIT IN STABLE CONDITION.
[2021-08-10] MEDS ORDERED: IOHEXOL 50 ML IV ONE ×2 (08:36→08:38)
[2021-08-10] MEDS ORDERED: INDOMETHACIN 50 MG SUPP.RECT PR ONE (09:30)
[2021-08-10] MEDS ORDERED: hydrALAZINE HCL IV 20 MG VIAL ONE ×2 (09:53→10:00)
[2021-08-10 10:00] VITALS: BP 115/59
[2021-08-10] MEDS: ONDANSETRON HCL/PF 4 MG/2 ML VIAL IV PRN (10:30)
[2021-08-10 10:33] VITALS: BP 115/76
--- NOTE | 2021-08-10 10:36 | NUR ---
patient came back from ERCP awake and alert oriented x4 resp unlabored no sob vitals taken and recorded will continue to assess and evaluate
[2021-08-10] MEDS: ESCITALOPRAM OXALATE (10 MG) 10 MG TABLET PO SCH (10:56)
--- NOTE | 2021-08-10 10:59 | NUR ---
RN NOTE INDOCIN SUPPOSITORY GIVEN BY PARTITION ASSEMBLER AT DURING ECRP PROCEDURE.
[2021-08-10 12:00] VITALS: BP 138/63
[2021-08-10] MEDS ORDERED: K PHOS NEUTRAL 250 MG TABLET PO ONE (15:30)
[2021-08-10] MEDS: SIMVASTATIN 20 MG TABLET PO SCH (18:53)
--- NOTE | 2021-08-10 18:58 | NUR ---
RN CLOSING NOTE PATIENT IS IN BED AWAKE, ORIENTED X 4.ON ROOM AIR, WITH OXYGEN SATURATION AT 97%, DENIES PAIN, AND NOT IN ACUTE RESPIRATORY DISTRESS. ON CLEAR LIQUID DIET. WITH LEFT UPPER ARM MIDLINE INFUSING WITH NS @ 75 CC/HR. WITH LEFT HAND SALINE LOCK INTACT AND PATENT. BED IS LOCKED IN THE LOWEST POSITION, 3 GUARD RAILS RAISED, CALL GRACIA WITHIN REACH, AND ALL HOSPITAL SAFETY PRECAUTIONS ARE IN PLACE. WILL ENDORSE TO RN PROCEDURE NURSE..
--- NOTE | 2021-08-10 19:10 | NUR ---
MS/RN OPENING NOTE RECEIVED PATIENT RESTING IN BED. AWAKE, ALERT AND ORIENTED X 4. ABLE TO MAKE NEEDS KNOWN. DENIES PAIN AT THIS TIME. CONTINUES ON ROOM AIR WITH NO S/SX OF RESPIRATORY DISTRESS NOTED. IV ACCESS TO LEFT UPPER ARM MIDLINE #18G AND LEFT HAND #24G BOTH INTACT AND PATENT. CONTINUES ON IVF NS @ 75ML/HR. CONTINUES ON CLEAR LIQUID DIET WITH NO NAUSEA OR VOMITING NOTED AT THIS TIME. PATIENT IS AMBULATORY WITH STEADY GAIT. CALL LIGHT WITHIN REACH. ASPIRATION, FALL AND SAFETY PRECAUTIONS MAINTAINED. ALL NEEDS ATTENDED TO AT THIS TIME.
[2021-08-10 20:00] VITALS: BP 113/59
[2021-08-11] MEDS: LORAZEPAM 0.5 MG TABLET PO PRN ×2 (00:03→22:31)
--- NOTE | 2021-08-11 00:19 | NUR ---
MS/RN NOTE PATIENT WITH C/O INCREASED ANXIETY. ADMINISTERED PRN ATIVAN PER MD ORDER.
[2021-08-11 04:00] VITALS: BP 104/63
[2021-08-11] MEDS: IV NS 0.9% 1,000 ML IV SCH (05:01)
--- NOTE | 2021-08-11 06:10 | NUR ---
MS/RN CLOSING NOTE PATIENT CURRENTLY SLEEPING IN BED. ALERT AND ORIENTED X 4. ABLE TO MAKE NEEDS KNOWN. DENIES PAIN AT THIS TIME. CONTINUES ON ROOM AIR WITH NO S/SX OF RESPIRATORY DISTRESS NOTED. IV ACCESS TO LEFT UPPER ARM MIDLINE #18G AND LEFT HAND #24G BOTH INTACT AND PATENT. CONTINUES ON IVF NS @ 75ML/HR. CONTINUES ON CLEAR LIQUID DIET WITH NO NAUSEA OR VOMITING NOTED AT THIS TIME. PATIENT IS AMBULATORY WITH STEADY GAIT. CALL LIGHT WITHIN REACH. ASPIRATION, FALL AND SAFETY PRECAUTIONS MAINTAINED. WILL ENDORSE PLAN OF CARE TO ONCOMING SHIFT.
[2021-08-11 07:13] LABS: BASOPHILS % (AUTO) 0.6 % (0.0-2.0); HEMATOCRIT 33 % (33-45); HEMOGLOBIN 11.4 g/dL (11.5-14.8); LYMPHOCYTES # (AUTO) 1.8 K/uL (0.8-4.8); LYMPHOCYTES % (AUTO) 26.2 % (20.0-44.0); MEAN CORPUSCULAR HGB CONC 34 g/dl (31.0-36.0); MEAN CORPUSCULAR VOLUME 90 fL (82-100); MONOCYTES # (AUTO) 0.9 K/uL (0.1-1.30); MONOCYTES % (AUTO) 12.8 % (2.0-12.0); NEUTROPHILS # (AUTO) 3.9 K/uL (1.8-8.9); NEUTROPHILS % (AUTO) 57.4 % (43.0-81.0); PLATELET COUNT (AUTO) 246 K/uL (150-450); WHITE BLOOD COUNT (AUTO) 6.9 K/uL (4.3-11.0)
--- NOTE | 2021-08-11 07:30 | NUR ---
MS RN AM NOTE RECEIVED PATIENT IN BED, AWAKE, ALERT AND ORIENTED X 4. ABLE TO MAKE NEEDS KNOWN. ON ROOM AIR, O2 SAT 94%, NO SOB, RESPIRATION UNLABORED. DENIES PAIN AT THIS TIME. IV ACCESS TO LEFT UPPER ARM MIDLINE #18G AND LEFT HAND #24G BOTH INTACT AND PATENT. WITH IVF NS @ 75ML/HR INFUSING WELL. BOTH SITES CLEAR. ON CLEAR LIQUID DIET WITH NO NAUSEA OR VOMITING NOTED AT THIS TIME. PATIENT IS AMBULATORY WITH STEADY GAIT. CALL LIGHT WITHIN REACH. ASPIRATION PRECAUTION, FALL AND SAFETY PRECAUTIONS MAINTAINED. SAFETY MEASURES IN PLACE. POC DISCUSSED. VERBALIZED UNDERSTANDING. CALL LIGHT WITHIN REACH. WILL CONT TO MONITOR.
[2021-08-11 07:33] LABS: ALBUMIN 2.1 g/dL (3.4-5.0); BILIRUBIN,DIRECT 1.3 mg/dL (0.0-0.2); TOTAL PROTEIN, SERUM 5.2 g/dL (6.4-8.2)
[2021-08-11 07:34] LABS: CALCIUM, SERUM 8.9 mg/dL (8.5-10.1); CARBON DIOXIDE 29 mmol/L (21-32); CHLORIDE 108 mmol/L (98-107); CREATININE 0.6 mg/dL (0.6-1.3); GLUCOSE 101 mg/dL (74-106); MAGNESIUM 1.8 mg/dL (1.8-2.4); PHOSPHORUS 3.5 mg/dL (2.5-4.9); POTASSIUM 3.3 mmol/L (3.5-5.1); SODIUM SERUM 142 mmol/L (136-145); UREA NITROGEN, BLOOD 9 mg/dL (7-18)
[2021-08-11 08:00] VITALS: BP 126/59
[2021-08-11] MEDS: ESCITALOPRAM OXALATE (10 MG) 10 MG TABLET PO SCH (08:17)
[2021-08-11] MEDS ORDERED: POTASSIUM CHLORIDE 20 MEQ TAB.PRT.SR PO SCH (09:30)
--- NOTE | 2021-08-11 09:30 | NUR ---
RN NOTES DUE MEDS GIVEN
--- NOTE | 2021-08-11 11:20 | NUR ---
RN NOTES DR. LIMA AT BEDSIDE TALKING TO PATIENT. PER DR. LIMA PLAN IS TO TRANSFER HER TO ANOTHER HOSPITAL FOR HIGHER LEVEL OF CARE. TO DO A REPEAT ERCP.
[2021-08-11] MEDS ORDERED: GUAIFENESIN 300 MG/15 ML UDC PO PRN (15:30)
[2021-08-11] MEDS ORDERED: ALBUTEROL FS 2.5 MG/0.5 ML VIAL.NEB NEB PRN (15:30)
[2021-08-11 16:00] VITALS: BP_SYST 135; BP_SYST 136; BP_DIAS 56; BP_DIAS 66
--- NOTE | 2021-08-11 16:16 | NUR ---
RN NOTES BUDDY DAUGHTER SHOULD BE [employer] ROUNDER FOR ANJELICA TAIWO PHONE NUMBER [phone] [employer] NOTIFIED.
[2021-08-11] MEDS ORDERED: ACETAMINOPHEN 650 MG/20.3 ML UDC NG PRN (17:00)
[2021-08-11] MEDS: ENSURE CLEAR 237 ML LIQUID (MIX BERRY) PO SCH (17:01)
[2021-08-11] MEDS: SIMVASTATIN 20 MG TABLET PO SCH (17:55)
--- NOTE | 2021-08-11 17:59 | NUR ---
RN NOTES [facility] - [facility], MEDICALLY ACCEPTED DR. ANIYA JUAREZ. ALSO FINANCIALLY CLEARED. BUT MD WANTS A BTA [BACK TRACK AGREEMENT] SIGNED. WAS FAXED TO CASE MANAGEMENT. NEEDED TOMORROW.
--- NOTE | 2021-08-11 18:53 | NUR ---
MS RN PM NOTE PATIENT RESTING IN BED, LEVI DAUGHTER AT BEDSIDE. AWAKE, ALERT AND ORIENTED X 4. ABLE TO MAKE NEEDS KNOWN. ON ROOM AIR, NO SOB, RESPIRATION UNLABORED. DENIES PAIN AT THIS TIME. IV ACCESS TO LEFT UPPER ARM MIDLINE #18G AND LEFT HAND #24G BOTH INTACT AND PATENT. BOTH SITES CLEAR. ON CLEAR LIQUID DIET WITH NO NAUSEA OR VOMITING NOTED AT THIS TIME. PATIENT IS AMBULATORY WITH STEADY GAIT. CALL LIGHT WITHIN REACH. ASPIRATION PRECAUTION, FALL AND SAFETY PRECAUTIONS MAINTAINED. SAFETY MEASURES IN PLACE. CALL LIGHT WITHIN REACH. ALL NEEDS MET AT THIS TIME. PM CARE DONE EARLIER. WILL ENDORSE TO NEXT SHIFT FOR TAYLOR.
--- NOTE | 2021-08-11 19:59 | NUR ---
MS RN OPENING NOTE RECEIVED PATIENT IN BED AWAKE, ALERT AND ORIENTED X 4. ABLE TO MAKE NEEDS KNOWN. DENIES PAIN AT THIS TIME. CONTINUES ON ROOM AIR WITH NO S/SX OF RESPIRATORY DISTRESS NOTED. IV ACCESS TO LEFT UPPER ARM MIDLINE #18G AND LEFT HAND #24G BOTH INTACT AND PATENT. CONTINUES ON CLEAR LIQUID DIET WITH NO NAUSEA OR VOMITING NOTED AT THIS TIME. PATIENT IS AMBULATORY WITH STEADY GAIT. CALL LIGHT WITHIN REACH. FALL AND SAFETY PRECAUTIONS IN PLACE. ALL NEEDS ATTENDED AT THIS TIME. WILL CONTINUE TO MONITOR.
[2021-08-11 20:00] VITALS: BP 117/61
[2021-08-11] MEDS: PIPERACILLIN /TAZOBACTAM 3.375 G in IV D5W 100 ML IV SCH (20:06)
--- NOTE | 2021-08-11 22:25 | NUR ---
RN NOTE PT COMPLAINTS OF HAVING DIFFICULTY SLEEPING, ASKING FOR MEDICATION TO ALLEVIATE ANXIETY, INFORMED CN, ATIVAN GIVEN PRN ORDERED.
[2021-08-12 04:00] VITALS: BP 125/60
[2021-08-12] MEDS: PIPERACILLIN /TAZOBACTAM 3.375 G in IV D5W 100 ML IV SCH ×3 (04:22→22:07)
[2021-08-12 05:58] LABS: BASOPHILS % (AUTO) 0.5 % (0.0-2.0); EOSINOPHILS % (AUTO) 4.4 % (0.0-6.0); HEMATOCRIT 34 % (33-45); HEMOGLOBIN 11.4 g/dL (11.5-14.8); LYMPHOCYTES % (AUTO) 31.4 % (20.0-44.0); MEAN CORPUSCULAR HGB CONC 34 g/dl (31.0-36.0); MEAN CORPUSCULAR VOLUME 90 fL (82-100); MONOCYTES # (AUTO) 0.8 K/uL (0.1-1.30); MONOCYTES % (AUTO) 11.7 % (2.0-12.0); NEUTROPHILS # (AUTO) 3.3 K/uL (1.8-8.9); PLATELET COUNT (AUTO) 282 K/uL (150-450); RED BLOOD CELL COUNT(AUTO) 3.74 MIL/uL (4.0-5.2); WHITE BLOOD COUNT (AUTO) 6.4 K/uL (4.3-11.0)
--- NOTE | 2021-08-12 06:35 | NUR ---
MS RN CLOSING NOTE NO SIGNIFICANT CHANGES THROUGHOUT SHIFT, PATIENT IN BED SLEEPING BUT EASILY AROUSABLE, PT IS ALERT AND ORIENTED X 4. ABLE TO MAKE NEEDS KNOWN. DENIES PAIN AT THIS TIME. CONTINUES ON ROOM AIR WITH NO S/SX OF RESPIRATORY DISTRESS NOTED. IV ACCESS TO LEFT UPPER ARM MIDLINE #18G AND LEFT HAND #24G BOTH INTACT AND PATENT. CONTINUES ON CLEAR LIQUID DIET WITH NO NAUSEA OR VOMITING NOTED AT THIS TIME. PATIENT IS AMBULATORY WITH STEADY GAIT. ALL DUE MEDS GIVEN, KEPT DRY AND CLEAN, CALL LIGHT WITHIN REACH. FALL AND SAFETY PRECAUTIONS IN PLACE. ALL NEEDS ATTENDED, AWAITING FOR TRANSFER TO [facility] FOR HIGHER LEVEL OF CARE, WILL ENDORSE TO AM SHIFT NURSE.
[2021-08-12 07:02] LABS: ALBUMIN 2.2 g/dL (3.4-5.0); BILIRUBIN,TOTAL 2.5 mg/dL (0.2-1.0); TOTAL PROTEIN, SERUM 5.3 g/dL (6.4-8.2)
[2021-08-12 07:19] LABS: CALCIUM, SERUM 8.8 mg/dL (8.5-10.1); CARBON DIOXIDE 30 mmol/L (21-32); CHLORIDE 107 mmol/L (98-107); CREATININE 0.7 mg/dL (0.6-1.3); GLUCOSE 100 mg/dL (74-106); MAGNESIUM 1.7 mg/dL (1.8-2.4); PHOSPHORUS 3.5 mg/dL (2.5-4.9); POTASSIUM 3.4 mmol/L (3.5-5.1); SODIUM SERUM 143 mmol/L (136-145); UREA NITROGEN, BLOOD 7 mg/dL (7-18)
--- NOTE | 2021-08-12 07:26 | NUR ---
MS RN OPENING NOTE RECEIVED PATIENT IN BED AWAKE, ALERT AND ORIENTED X 4. ABLE TO MAKE NEEDS KNOWN. NO PAIN NOTES AT THIS TIME. ON ROOM AIR WITH NO RESPIRATORY DISTRESS NOTED. IV ACCESS TO LEFT UPPER ARM MIDLINE #18G AND LEFT HAND #24G BOTH INTACT AND PATENT. ON CLEAR LIQUID DIET WITH NO NAUSEA OR VOMITING NOTED . SAFETY MEASURES IN PLACE.CALL LIGHT WITHIN REACH. FALL AND SAFETY PRECAUTIONS IN PLACE. ALL NEEDS ATTENDED AT THIS TIME. WILL CONTINUE TO MONITOR.
[2021-08-12] MEDS: ENSURE CLEAR 237 ML LIQUID (MIX BERRY) PO SCH ×2 (08:15→17:44)
[2021-08-12] MEDS: ESCITALOPRAM OXALATE (10 MG) 10 MG TABLET PO SCH (08:15)
[2021-08-12] MEDS ORDERED: MAGNESIUM OXIDE 400 MG TABLET PO ONE (10:00)
[2021-08-12] MEDS ORDERED: POTASSIUM CHLORIDE 20 MEQ TAB.PRT.SR PO SCH (10:00)
[2021-08-12 12:16] VITALS: BP 141/67
[2021-08-12] MEDS: SIMVASTATIN 20 MG TABLET PO SCH (17:03)
--- NOTE | 2021-08-12 18:19 | NUR ---
MS RN CLOSING NOTE PATIENT IN BED AWAKE, ALERT AND ORIENTED X 4. ABLE TO MAKE NEEDS KNOWN. NO PAIN NOTES AT THIS TIME. ON ROOM AIR WITH NO RESPIRATORY DISTRESS NOTED. IV ACCESS TO LEFT HAND #24G INTACT AND PATENT. ON CLEAR LIQUID DIET WITH NO NAUSEA OR VOMITING NOTED .ALL DUE MEDS GIVEN ORDERED. PATIENT AND DAUGHTER CONCERN ABOUT NOT BEING TRANSFERRED YET. CALLED DRYING MACHINE RECEIVER TEX SHE STATED PATIENT WILL BE TRANSFER TO [facility] BUT SHE HAS NOT RECEIVED CALL FROM THEM TO CONFIRM TRANSPORTATION EXACT TIME. SAFETY MEASURES IN PLACE.CALL LIGHT WITHIN REACH. FALL AND SAFETY PRECAUTIONS IN PLACE. ALL NEEDS ATTENDED AT THIS TIME. WILL ENDORSE FOR TAYLOR.
[2021-08-12 20:00] VITALS: BP 129/69
--- NOTE | 2021-08-12 21:00 | NUR ---
MS RN Opening Note Pt received in bed A&O x4, calm, cooperative. Pt on RA with O2sat 96%; no s/s of resp distress, non-labored breathing, no SOB noted; appears comfortable. Pt noted to be on clear liquid diet. Left hand 24G IV and JOSE midline intact and patent; no s/s of infiltration, flushes easily with no resistance. Bed in lowest position, call light within reach, side rails up x2. Will continue to monitor throughout the night.
[2021-08-12] MEDS: LORAZEPAM 0.5 MG TABLET PO PRN (22:48)
--- NOTE | 2021-08-12 22:49 | NUR ---
RN Note Pt requests medication for sleep. Pt given Lorazepam 0.5 mg PO PRN. Will monitor for effectiveness.
[2021-08-13 04:00] VITALS: BP 108/60
[2021-08-13] MEDS: PIPERACILLIN /TAZOBACTAM 3.375 G in IV D5W 100 ML IV SCH ×2 (06:07→12:20)
[2021-08-13 06:28] LABS: BASOPHILS % (AUTO) 0.6 % (0.0-2.0); EOSINOPHILS % (AUTO) 4.6 % (0.0-6.0); HEMATOCRIT 34 % (33-45); HEMOGLOBIN 11.3 g/dL (11.5-14.8); LYMPHOCYTES # (AUTO) 2.1 K/uL (0.8-4.8); MEAN CORPUSCULAR HGB CONC 34 g/dl (31.0-36.0); MEAN CORPUSCULAR VOLUME 89 fL (82-100); MONOCYTES # (AUTO) 0.8 K/uL (0.1-1.30); MONOCYTES % (AUTO) 11.3 % (2.0-12.0); NEUTROPHILS # (AUTO) 3.5 K/uL (1.8-8.9); NEUTROPHILS % (AUTO) 51.5 % (43.0-81.0); PLATELET COUNT (AUTO) 295 K/uL (150-450); RED BLOOD CELL COUNT(AUTO) 3.76 MIL/uL (4.0-5.2); WHITE BLOOD COUNT (AUTO) 6.7 K/uL (4.3-11.0)
--- NOTE | 2021-08-13 06:39 | NUR ---
MS RN Closing Note Pt in bed A&O x4, slept well throughout the night with aid of Ativan. Pt continues to be on RA with O2sat 92%; no s/s of resp distress, non-labored breathing, no SOB noted. Pt resumes on clear liquid diet. Left hand 24G IV and JOSE midline intact and patent; no s/s of infiltration, flushes easily with no resistance. Due antibiotics and fluids administered during shift. Bed in lowest position, call light within reach, side rails up x2. Will endorse to dayshift nurse to continue care
--- NOTE | 2021-08-13 07:00 | NUR ---
RN OPENING NOTE PATIENT IS IN BED, ALERT ORIENTED X 4. ON ROOM AIR, NOT IN RESPIRATORY DISTRESS. DENIES PAIN. WITH LEFT UPPER MIDLINE GAUGE 18 INFUSING WITH NS @ 75 ML/HR. WITH LEFT HAND IV CURRENTLY INFUSING WITH ZOSYN AT 25 ML/HR. NO SIGNS OF INFILTRATION NOTED IN BOTH IV SITES. BED IN LOWEST POSITION, 3 SIDE RAILS UP, CALL GRACIA WITHIN REACH, AND ALL HOSPITAL SAFETY PRECAUTIONS ARE IN PLACE. WILL CONTINUE TO MONITOR THROUGHOUT SHIFT.
[2021-08-13] MEDS: ENSURE CLEAR 237 ML LIQUID (MIX BERRY) PO SCH ×2 (08:00→17:23)
[2021-08-13 08:26] LABS: ALANINE AMINOTRANSFERASE 32 U/L (12-78); ALBUMIN 2.2 g/dL (3.4-5.0); ALKALINE PHOSPHATASE 368 U/L (46-116); ASPARTATE AMINOTRANSFERASE 17 U/L (15-37); BILIRUBIN,DIRECT 0.2 mg/dL (0.0-0.2); BILIRUBIN,TOTAL 1.9 mg/dL (0.2-1.0); CALCIUM, SERUM 8.6 mg/dL (8.5-10.1); CARBON DIOXIDE 30 mmol/L (21-32); CHLORIDE 108 mmol/L (98-107); CREATININE 0.6 mg/dL (0.6-1.3); GLUCOSE 110 mg/dL (74-106); MAGNESIUM 1.8 mg/dL (1.8-2.4); POTASSIUM 3.4 mmol/L (3.5-5.1); SODIUM SERUM 142 mmol/L (136-145); TOTAL PROTEIN, SERUM 5.4 g/dL (6.4-8.2); UREA NITROGEN, BLOOD 7 mg/dL (7-18)
[2021-08-13] MEDS: ESCITALOPRAM OXALATE (10 MG) 10 MG TABLET PO SCH (09:04)
[2021-08-13 12:09] VITALS: BP 136/67
[2021-08-13 16:10] VITALS: BP 131/57
[2021-08-13] MEDS ORDERED: Sodium Phosphate 40 MMOL in IV NS 0.9% 250 ML IV SCH (17:00)
[2021-08-13] MEDS: SIMVASTATIN 20 MG TABLET PO SCH (18:20)
--- NOTE | 2021-08-13 19:02 | NUR ---
RN CLOSING NOTE PATIENT IS IN BED AWAKE ORIENTED X 4. ON ROOM AIR WITH O2 SATURATION AT 95%. WITH LEFT UPPER ARM MIDLINE INFUSING WITH SODIUM PHOSPHATE 40 MMOL AT 32.3 ML/HR. DENIES PAIN, NOT IN ANY FORM OF DISTRESS. BED IS LOCKED IN LOWEST POSITION, 3 GUARD RAILS RAISED. CALL LIGHT WITHIN REACH. ALL DUE MEDICATIONS GIVEN. PATIENT IN STABLE CONDITION THROUGHOUT SHIFT. WILL ENDORSE TO LOUNGE CAR ATTENDANT NURSE.
--- NOTE | 2021-08-13 20:25 | NUR ---
FAMILY PRACTICE MEDICAL DOCTOR NOTES: PATIENT AWAKE, ALERT ORIENTED X 4, VERBALLY RESPONSIVE. ON ROOM AIR AND TOLERATED WELL. O2 SAT 95%. BREATHING EVEN AND UNLABORED. NO SOB NOTED. IV ACCESS ON JOSE MIDLINE#18G AND LEFT HAND INTACT AND PATENT. NO S/S OF INFILTRATIONS. WILL KEEP THE IV SITES PER NURSE'S REQUEST. NO C/O PAIN OR DISCOMFORT. NO ACUTE DISTRESS. NOTED. V/S STABLE- T-98.1 F, P-66, R-20, BP- 153/66, 0/10. REPORT HAD BEEN GIVEN TO NATASHA CAMP. FROM [facility] PREVIOUS SHIFT NURSE.. ALL PAPERS SIGNED BY PT. EXPLAINED ALL THE RISKS AND BENEFITS. ALL DOCUMENTS. GIVEN. PT WAS PICKED UP BY AMBULANCE VIA GURNEY IN [place] [place].
== END 2021-08-13 20:29 | disposition short-term general hospital (02) | DRG 445 ==
LOC: ER 14:15 → TELE1 19:16 → MEDSG1 08-07 10:18
PROVIDERS: ADMIT Student in an Organized Health Care Education/Training Program; ATTEND Student in an Organized Health Care Education/Training Program
PROC: 05HC33Z Insertion of Infusion Device into Left Basilic Vein, Percutaneous Approach (ICD-10-PCS; principal; 2021-08-08)
PROC: 0F798ZZ Dilation of Common Bile Duct, Via Natural or Artificial Opening Endoscopic (ICD-10-PCS; 2021-08-12)
DX: K80.46 Calculus of bile duct with acute and chronic cholecystitis without obstruction (principal); E44.1 Mild protein-calorie malnutrition; K86.2 Cyst of pancreas; H81.09 Meniere's disease, unspecified ear; R74.01 Elevation of levels of liver transaminase levels; E88.09 Other disorders of plasma-protein metabolism, not elsewhere classified; E78.5 Hyperlipidemia, unspecified; Z20.822 Contact with and (suspected) exposure to COVID-19; Z90.710 Acquired absence of both cervix and uterus; Z98.890 Other specified postprocedural states; Z79.899 Other long term (current) drug therapy; Z82.2 Family history of deafness and hearing loss; K82.8 Other specified diseases of gallbladder; K57.10 Diverticulosis of small intestine without perforation or abscess without bleeding; F32.A Depression, unspecified; F43.23 Adjustment disorder with mixed anxiety and depressed mood; H81.399 Other peripheral vertigo, unspecified ear; N28.1 Cyst of kidney, acquired
CPT/HCPCS: 36410; 36415; 70450-TC; 70544-TC; 70551-TC; 71045-TC; 74181-TC; 76700-TC; 78226; 80048-TC; 80076-TC; 82150-TC; 83690-TC; 83735-TC; 84100-TC; 84443-TC; 84484-TC; 85025-TC; 85730-TC; 87081-TC; 92526; 92611-TC; 93307-TC; 97116-TC; 97530-TC; 97535-TC; A9537; A9563; C9803; G0378; J0330; J0360; J0690; J1885; J2060; J2270; J2405; J2543; J2704; J2765; J3490; J7030; J7050; J7060; J8597; Q9967